=== PATIENT | female | born 1980 | race Caucasian/White ===

== ENCOUNTER 2019-04-15 20:07 | Emergency (ER) | payer SELFPAY, OTHER, MEDICAID ==
[2019-04-15] MEDS: IBUPROFEN 600 MG TAB PO (21:41)
== END 2019-04-15 23:56 | disposition home or self-care (01) ==
LOC: FTE 20:07
DX: M54.2 Cervicalgia (principal); M54.5 Low back pain; R07.9 Chest pain, unspecified
CPT/HCPCS: 71045; 72040; 72072; 72100; 81025; 99284-25